=== PATIENT | female | born 1960 | race Caucasian/White ===

== ENCOUNTER → 2021-09-15 16:11 | Outpatient (CLI) | payer OTHER, SELFPAY ==
--- NOTE | 2021-09-15 | DI.RAD.S_ITS ---
PROCEDURE: XR WRIST LT MIN 3V INDICATIONS: PAIN IN LEFT ARM TECHNIQUE: 4 views of the wrist were acquired. COMPARISON: None. FINDINGS: Bones: No fractures or dislocations. No suspicious bony lesions. Lucency involving the ulnar styloid tip. Scaphoid view: Intact scaphoid. Soft tissues: No suspicious soft tissue calcifications. IMPRESSION: 1. No definite acute radiographic abnormality. If pain persists with conservative management, consider cross sectional imaging such as CT or MRI for further assessment. 2. Lucency involving the ulnar styloid tip consistent with bony erosion versus subchondral cystic change. Dictated by: Franky Medina [facility] Interpreted: Windy Tsai MD on 09/15/2021 at 17:08 Transcribed by: ROWDY on 09/15/2021 at 17:09 Approved by: Windy Tsai M.D. on 09/15/2021 at 19:23
--- NOTE | 2021-09-15 | DI.RAD.S_ITS ---
PROCEDURE: XR FOREARM LT 2V INDICATIONS: PAIN IN LEFT ARM TECHNIQUE: 2 views of the forearm were acquired. COMPARISON: None. FINDINGS: Bones: No fractures or dislocations. No suspicious bony lesions. Soft tissues: No suspicious soft tissue calcifications or masses. IMPRESSION: No definite radiographic abnormality. If pain persists with conservative management, consider cross sectional imaging such as CT or MRI for further assessment. Dictated by: Franky ALMEIDA Interpreted: Windy Tsai MD on 09/15/2021 at 17:08 Transcribed by: ROWDY on 09/15/2021 at 17:08 Approved by: Windy Tsai M.D. on 09/15/2021 at 19:23
== END ==
PROVIDERS: PCP Family Medicine; Referring Provider Family Medicine; Visit Provider Family Medicine
DX: M79.602 Pain in left arm (principal)
CPT/HCPCS: 73090; 73110

== ENCOUNTER → 2021-10-14 17:39 | Outpatient (CLI) | payer OTHER, SELFPAY ==
--- NOTE | 2021-10-14 17:40 | DI.MRI.S_ITS ---
PROCEDURE: MR WRIST LT WO CON INDICATIONS: Pain in left wrist TECHNIQUE: Noncontrast coronal proton density fast spin echo and T2 fast spin echo with fat saturation; coronal 3-D gradient echo, axial T1 spin echo and T2 fast spin echo with fat saturation, sagittal T1 spin echo through the wrist. COMPARISON: None. FINDINGS: Image quality: Excellent. Bones and cartilage: Osteoarthritic changes throughout wrist joints are seen more prominent along radial aspect of left wrist. Mild edema is seen involving distal ulnar without discrete fracture line. Subcortical cyst formation involving ulnar styloid is also noted. Osteoarthritic edema edema is also seen No evidence of osteonecrosis. No suspicious bony lesion. Carpal ligaments: There is suggestion of low-grade sprain involving scapholunate ligament. No ligament rupture. Lunotriquetral ligament is intact. In the absence of intra-articular contrast, the extrinsic carpal ligaments are not well identified. On sagittal images, the pisohamate ligament appears intact. Triangular fibrocartilage complex: Signal abnormality involving medial aspect of triangular fibrocartilage near its ulnar insertion is seen concerning for TFCC tear. The adjacent meniscal homolog appears normal in the absence of intra-articular contrast. The extensor carpi ulnaris tendon is thickened with intrasubstance T2 hyperintense signal suggestive of tendinosis and low-grade intrasubstance partial-thickness tear. Small amount of fluid distending tendon sheath is also seen suggestive of tenosynovitis. Tendons and soft tissues: The carpal tunnel structures appear normal, including the median nerve. The ulnar nerve appears normal within Guyon's canal. Rest of the extensor tendon compartments demonstrate normal morphology, without pathologic tendon sheath fluid. No soft tissue ganglion cysts. IMPRESSION: 1. 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 No fracture or dislocation. 2. Low-grade scapholunate ligament sprain. No ligament rupture. Lunotriquetral ligament is intact. 3. Suggestion of TFCC tear near its ulnar insertion. 4. Low to moderate grade tenosynovitis and intrasubstance partial-thickness tear involving extensor carpi ulnaris tendon at the level of ulnar styloid. Rest of the wrist tendons are intact. Dictated by: Geovany Tian M.D. on 10/15/2021 at 8:23 Approved by: Geovany Tian M.D. on 10/15/2021 at 9:25
== END ==
PROVIDERS: PCP Family Medicine; Referring Provider Family Medicine; Visit Provider Family Medicine
DX: M18.12 Unilateral primary osteoarthritis of first carpometacarpal joint, left hand (principal); M19.032 Primary osteoarthritis, left wrist; S66.812A Strain of other specified muscles, fascia and tendons at wrist and hand level, left hand, initial encounter; S63.592A Other specified sprain of left wrist, initial encounter; M65.9 Synovitis and tenosynovitis, unspecified; M25.532 Pain in left wrist
CPT/HCPCS: 73221